=== PATIENT | male | born 1960 | race Caucasian/White ===

== ENCOUNTER 2016-11-20 10:47 | Emergency (ER) | payer BC ==
--- NOTE | 2016-11-20 11:31 | Emergency Department Record ---
History of Present Illness - General Chief Complaint: Neck Injury/Pain Stated Complaint: NECK PAIN Time Seen by Provider: 11/20/16 11:29 Source: Patient Mode of Arrival: Ambulatory Limitations: No limitations - History of Present Illness Initial Comments: The patient is here due to R sided neck pain for about 2 years. He has a hx of a thyroid mass and has been referred to Endocrinology at [facility]. He did have some fine needle aspirations for it last year but did not follow up due to financial reasons. Now the patient states the mass is much worse and has been growing fast and painful now for the last 2 months. He denies any CP, SOB, or ZOIE. The patient does go to the [facility] but has not followed up there also. MD Complaint: Neck pain Onset/Timin -: Year(s) Radiation: Other Severity: Mild Severity scale (1-10): 8 Quality: Sharp Consistency: Constant Improves With: None Worsens With: Movement of extremity, Movement of neck Associated Symptoms: None Treatments Prior to Arrival: None - Related Data Home Medications Medication Instructions Recorded Confirmed Last Taken Multivitamin [Multi-Vitamin Daily] 1 each PO DAILY 12/09/14 11/20/16 Unknown Thiamine HCl [Vitamin B-1] 50 mg PO DAILY 12/09/14 11/20/16 Unknown Allergies Allergy/AdvReac Type Severity Reaction Status Date / Time No Known Allergies Allergy Unverified 01/03/16 08:54 Travel Screening - Travel/Exposure Within Last 30 Days Have you traveled within the last 30 days?: No Review of Systems Constitutional: Denies: Chills, Fever Eyes: Denies: Eye discharge ENT: Denies: Congestion Respiratory: Denies: Cough, Dyspnea Past Medical History - SOCIAL HISTORY Smoking Status: Never smoker Alcohol Use: None Drug Use: None - RESPIRATORY Hx Respiratory Disorders: No - CARDIOVASCULAR Hx Cardio Disorders: Yes Hx Irregular Heartbeat: Yes (afib) - NEURO Hx Neuro Disorders: No - GI Hx GI Disorders: No - Hx Genitourinary Disorders: No - ENDOCRINE Hx Endocrine Disorders: No - MUSCULOSKELETAL Hx Musculoskeletal Disorders: No - PSYCH Hx Psych Problems: No - HEMATOLOGY/ONCOLOGY Hx Hematology/Oncology Disorders: No Family Medical History Any Significant Family History?: No Physical Exam - General General Appearance: Alert, Oriented x3, Cooperative, No acute distress - Head Head exam: Atraumatic, Normocephalic, Normal inspection - Eye Eye exam: Normal appearance, PERRL - ENT Throat exam: Normal inspection. negative: Tonsillar erythema, Tonsillar exudate - Neck Neck exam: Thyromegaly (There is a large mass over the R side of the neck that does appear consistent with the thyroid gland. There is no overlying erythema or warmth.). negative: Normal inspection - Respiratory Respiratory exam: Normal lung sounds bilaterally. negative: Respiratory distress - Cardiovascular Cardiovascular Exam: Regular rate, Normal rhythm, Normal heart sounds Course Vital Signs 11/20/16 11:19 Temperature 97.7 F Pulse Rate 60 Respiratory 20 Rate Blood Pressure 143/88 Pulse Ox 99 - Reevaluation(s) Reevaluation #1: I did consult with Dr. Espinosa due to the patient's confusing nature regarding his timeline of events. Dr. Espinosa did come over to the ER and see the patient but he became angry and stormed out without being evaluated. 11/20/16 12:08 Medical Decision Making - Lab Data Result diagrams: 11/20/16 11:39 11/20/16 11:39 Disposition Disposition: Discharge Clinical Impression: Neck mass Disposition: Against Medical Advice Condition: (2) Stable Forms: Patient Portal Access Time of Disposition: 12:09
== END 2016-11-20 12:22 | disposition left against medical advice (07) ==
LOC: ER 10:47
DX: R22.1 Localized swelling, mass and lump, neck (principal); M54.2 Cervicalgia
CPT/HCPCS: 99283